=== PATIENT | female | born 1955 | race Caucasian/White ===

== ENCOUNTER 2017-06-01 22:09 | Inpatient (IN) ==
[2017-06-02 00:18] LABS: Basophils # 0.1 K/mcL (0.0-0.2); Basophils % 0.5 %; Eosinophils # 0.6 K/mcL (0.0-0.6); Eosinophils % 6.1 %; Hematocrit 35.2 % (35.3-44.9); Hemoglobin 12.2 g/dL (11.5-15.4); Immature Granulocytes % 0.6 % (0-4); Immature Platelets 6.1 % (1.1-6.1); Lymphocytes # 1.5 K/mcL (0.6-4.6); Lymphocytes % 14.5 %; Mean Corpuscular HGB Conc 34.7 g/dL (31.6-35.5); Mean Corpuscular Hemoglobin 30.7 pg (28.0-33.3); Mean Corpuscular Volume 88.7 fL (83.0-100.0); Mean Platelet Volume 11.1 fL (9.4-12.4); Monocytes # 1.2 K/mcL (0.0-1.3); Monocytes % 12.2 %; Neutrophils # 6.7 K/mcL (1.6-8.9); Platelet Count 221 K/mcL (140-400); Red Blood Count 3.97 M/mcL (3.82-4.97); Red Cell Distribution Width 12.9 % (11.5-14.5); Segmented Neutrophils % 66.1 %
[2017-06-02 00:45] LABS: Albumin 2.7 g/dL (3.5-5.0); Albumin/Globulin Ratio 0.7 (1.1-2.2); Bilirubin,Direct 0.7 mg/dL (0.0-0.5); Bilirubin,Indirect 0.4 mg/dL (0.0-1.2); Bilirubin,Total 1.1 mg/dL (0.2-1.2); Calcium 8.5 mg/dL (8.6-10.8); Globulin 4.1 g/dL (2.4-3.5); Potassium 3.9 mEq/L (3.5-4.5); Total Protein 6.8 g/dL (6.0-8.3)
[2017-06-02] MEDS ORDERED: Ondansetron 4 MG/2 ML VIAL IVP ONE (01:39)
[2017-06-02] MEDS ORDERED: *HR* Morphine 2 MG/ML SYRINGE IVP ONE (01:39)
--- NOTE | 2017-06-02 01:43 | Emergency Department Note ---
Disposition Clinical Impression: Abdominal distention Nausea and vomiting Qualifiers: Vomiting type: unspecified Vomiting Intractability: non-intractable Qualified Code(s): R11.2 - Nausea with vomiting, unspecified Acute kidney failure Qualifiers: Acute renal failure type: unspecified Qualified Code(s): N17.9 - Acute kidney failure, unspecified Disposition: Admitted As Inpatient Condition: Fair Abdominal Pain HPI - General Chief Complaint: ED Abdominal Pain Stated Complaint: states post op complications after umbilical surg Time Seen by Provider: 06/02/17 01:29 Source: patient, family Mode of arrival: ambulatory Limitations: no limitations Nursing Notes Reviewed: Yes Vital Signs Reviewed: Yes - History of Present Illness HPI Narrative: 61-year-old female history of CVA, alcoholic liver disease, as postop 1 week from umbilical hernia repair presents for evaluation of diffuse abdominal bloating. Patient also notes abdominal pain. States that she has had difficult to stooling. Last bowel movement was today and half ago. Also developed some nausea and vomiting over the past 48 hours. Denies any fevers. No chest pain or shortness of breath. No dysuria or hematuria. Patient scheduled follow-up with Dr. Devi, the surgeon in the upcoming weeks. Patient states that she does drink alcohol with approximately 8 beers daily. Abdominal surgery in the past include cholecystectomy, appendectomy, hysterectomy. The patient has not had a colonoscopy. States that she has not been passing gas, but belches. Pain Scale: 9 - Related Data Home Medications Medication Instructions Recorded Confirmed Amlodipine Besylate 10 mg PO DAILY 05/25/17 05/25/17 Aspirin [Lo-Dose Aspirin EC] 81 mg PO DAILY 05/25/17 05/25/17 Atorvastatin [Lipitor] 40 mg PO HS 05/25/17 05/25/17 Furosemide [Lasix] 40 mg PO DAILY 05/25/17 05/25/17 LORazepam [Ativan] 0.5 mg PO BID 05/25/17 05/25/17 Levothyroxine Sodium [Levoxyl] 25 mcg PO DAILY 05/25/17 05/25/17 Lisinopril [Zestril] 10 mg PO DAILY 05/25/17 05/25/17 Potassium Chloride [Klor-Con 10] 10 meq PO DAILY 05/25/17 05/25/17 Previous Rx's Medication Instructions Recorded HYDROcodone/Acet 5/325 mg [[place] 1 tab PO Q6H PRN #12 tab 05/20/17 5-325 mg] OxyCODONE Immed Rel [Roxicodone 5 5 mg PO Q6HR PRN #36 tablet 05/25/17 MG] Allergies Allergy/AdvReac Type Severity Reaction Status Date / Time acetaminophen AdvReac Vomiting Verified 06/01/17 22:42 [From Tylenol-Codeine #3] codeine AdvReac Vomiting Verified 06/01/17 22:42 [From Tylenol-Codeine #3] hydrocodone [From [place]] AdvReac Vomiting Verified 06/01/17 22:42 All systems ED: reviewed and negative except as stated. Constitutional: Reports: as per HPI. Denies: fever Eyes: Reports: as per HPI ENT ED: Reports: as per HPI Cardiovascular: Reports: as per HPI. Denies: chest pain Respiratory: Reports: as per HPI. Denies: dyspnea Gastrointestinal: Reports: as per HPI, abdominal pain, nausea, vomiting, constipation. Denies: diarrhea Genitourinary: Reports: as per HPI Musculoskeletal: Reports: as per HPI Integumentary: Reports: as per HPI Neurological: Reports: as per HPI Psychiatric: Reports: as per HPI Endocrine: Reports: as per HPI Hematological/Lymphatic: Reports: as per HPI Allergic/Immunologic: Reports: as per HPI Abdominal Pain PMH - Past Medical History Medical history: Reports: asthma, CVA, hypertension, other Female Surgical History: Reports: appendectomy, breast surgery, carotid endarterectomy, cholecystectomy, hysterectomy, other Psychiatric history: Reports: anxiety, depression - Social History Smoking status: Former smoker Alcohol use: Reports: heavy Drug use: Reports: none Physical Exam - General Limitations: no limitations General appearance: alert, in no apparent distress - Head Head exam: atraumatic, normocephalic, normal inspection - Eye Eye exam: Present: normal appearance - ENT ENT exam: normal exam, mucous membranes moist - Neck Neck exam: Present: normal inspection, trachea midline - Chest Chest inspection: Present: normal inspection - Respiratory Respiratory exam: Present: normal lung sounds bilaterally. Absent: respiratory distress - Cardiovascular Cardiovascular exam: Present: regular rate, normal rhythm - Abdominal Exam Abdominal exam: Present: soft, tenderness (Mild abdominal tenderness), distention, other (Positive fluid wave). Absent: guarding, rebound - Extremities Exam Extremities exam: Present: normal inspection. Absent: pedal edema - Back Exam Back exam: Present: normal inspection. Absent: CVA tenderness (R), CVA tenderness (L) - Neurological Exam Neurological exam: Present: alert, oriented X3 - Skin Skin exam: Present: warm, dry, intact, normal color Course Course Narrative: Patient seen and examined. Patient's laboratory evaluation ordered from triage. Patient abdominal exam is nonsurgical. Patient does not have spontaneous bacterial peritonitis. Patient has abdominal distention likely rate alcoholic liver disease. Patient will get a CT of the abdomen and pelvis without IV contrast. - Reevaluation(s) Reevaluation #1: Patient seen and examined. Plan of care discussed. Worsening kidney function. Repeat abdominal exam is unremarkable. Time: 02:23 Vital Signs Temperature 98.3 F 06/01/17 22:36 Pulse Rate 85 06/01/17 22:36 Respiratory Rate 16 06/01/17 22:36 Blood Pressure 89/57 06/01/17 22:36 O2 Sat by Pulse Oximetry 98 06/01/17 22:36 Temperature 98.1 F 06/02/17 05:00 Pulse Rate 72 06/02/17 05:00 Respiratory Rate 18 06/02/17 05:00 Blood Pressure 93/57 06/02/17 05:00 O2 Sat by Pulse Oximetry 99 06/02/17 05:00 Oxygen Delivery Oxygen Delivery Room Air Abdominal Pain - MDM Narrative Medical decision making narrative: 61-year-old female presents for evaluation of abdominal distention, abdominal pain as well as constipation. Patient states that she is postop approximately a week from an umbilical hernia repair. Patient does have a history of alcoholic liver disease. Patient missed to drinking approximately 8 alcoholic beverages a day. This was confirmed by the daughter at bedside. Notes decreased bowel movements over the past week. Did note a small bowel movement a day and half ago. Also had some nausea vomiting during this timeframe. Denies any fevers. Denies shortness of breath or chest pain. Does note some abdominal discomfort. Patient's abdominal exam is nonsurgical. Patient does not have spontaneous bacterial peritonitis. Patient's labs reviewed does show that she has worsening kidney function. Patient states she continues to produce urine. Concerns for hepatorenal disease with this patient with chronic liver disease. Patient would likely benefit from further evaluation and monitoring. Patient was given a small fluid bolus in the emergency department she has has been having decreased by mouth. Patient's CAT scan does not show any signs of obstruction. Gait patient's CAT scan also stated that may have been lobulated fluid near the umbilical hernia site. Believe this is likely related to ascites fluid. Patient's incision appears grossly normal. No discharge. No surrounding erythema. Patient would likely benefit from paracentesis under guidance. Patient was given thiamine and folate. - Lab Data Lab results reviewed: Yes I reviewed the patient's lab results. Result diagrams: 06/01/17 23:59 06/02/17 Unknown Lab Results 06/01/17 06/01/17 06/02/17 Range/Units 23:59 23:59 03:10 WBC 10.1 (4.3-11.1) K/mcL RBC 3.97 (3.82-4.97) M/mcL Hgb 12.2 (11.5-15.4) g/dL Hct 35.2 L (35.3-44.9) % MCV 88.7 (83.0-100.0) fL MCH 30.7 (28.0-33.3) pg MCHC 34.7 (31.6-35.5) g/dL RDW 12.9 (11.5-14.5) % Plt Count 221 (140-400) K/mcL MPV 11.1 (9.4-12.4) fL Immature Gran % 0.6 (0-4) % Seg Neutrophils % 66.1 % Lymphocytes % 14.5 % Monocytes % 12.2 % Eosinophils % 6.1 % Basophils % 0.5 % Neutrophils # 6.7 (1.6-8.9) K/mcL Lymphocytes # 1.5 (0.6-4.6) K/mcL Monocytes # 1.2 (0.0-1.3) K/mcL Eosinophils # 0.6 (0.0-0.6) K/mcL Basophils # 0.1 (0.0-0.2) K/mcL Immature Plt Fraction 6.1 (1.1-6.1) % PT 14.2 H (9.4-12.1) Seconds INR 1.3 Sodium 129 L (136-145) mEq/L Potassium 3.9 (3.5-4.5) mEq/L Chloride 98 (98-109) mEq/L Carbon Dioxide 17 L (19-29) mEq/L BUN 41 H (7-20) mg/dL Creatinine 2.93 H (0.57-1.11) mg/dL Est GFR ( Amer) 20 L (> 60) Est GFR (Non-Af Amer) 16 L (> 60) BUN/Creatinine Ratio 14 (6-26) Glucose 115 H (70-99) mg/dL Calculated Osmolality 279 L (280-300) Calcium 8.5 L (8.6-10.8) mg/dL Total Bilirubin 1.1 (0.2-1.2) mg/dL Direct Bilirubin 0.7 H (0.0-0.5) mg/dL Indirect Bilirubin 0.4 (0.0-1.2) mg/dL AST 35 H (5-34) Units/L ALT 20 (0-55) Units/L Alkaline Phosphatase 107 (38-126) Units/L Serum Total Protein 6.8 (6.0-8.3) g/dL Albumin 2.7 L (3.5-5.0) g/dL Globulin 4.1 H (2.4-3.5) g/dL Albumin/Globulin Ratio 0.7 L (1.1-2.2) Lipase 12 (8-78) Units/L - Radiology Data Radiology results reviewed: Yes I reviewed the patient's radiology results. Abdomen/Pelvis CT 06/02/17 01:40 IMPRESSION: There is a moderate volume of ascites in the abdomen and pelvis. This may be related to liver disease in this patient with suspected cirrhosis. Clinical correlation is recommended. Lobulated low-attenuation fluid collection in the region of the umbilicus may represent postoperative fluid collection and/or ascites leaking at the operative site. D/ / El Costello MD / El Costello MD Interpreting Provider: El Costello MD S.B.A.R. - S.B.A.R. Situation: Demographics Background: Presenting Complaint Assessment: Vital Signs, Course and respsone to treatment, Patient/Family Expectation Recommendation: Barrier(s) to disposition, Recommendation based on pending studies, treatments, or consults S.B.A.R. Report Given to: Dr. Yovany Frausto Repor Time: 03:09 Attestation Statement - Attestation Attestation: I, Silvano Yap MD, personally evaluated this patient and discussed their management with the resident physician. I reviewed the resident's note and agree with the documented findings, medical decision making, and plan of care. 61-year-old female presents to the emergency department with a complaint of abdominal pain and chin after she had an umbilical hernia repair 1 week ago. There is a firm masslike area beneath the hernia repair incision which seems to be gradually getting larger. She also complains of some nausea and vomiting. No bowel movement for several days. No fever. On examination patient is a well-developed well-nourished female in no acute distress. She is alert and oriented 3. There is no cyanosis or diaphoresis. Breath sounds are clear and equal bilaterally. Heart regular rate and rhythm. Abdomen is soft with normal bowel sounds. There is mild diffuse tenderness with a palpable firm masslike area distal above the umbilicus beneath the incision. No erythema or drainage. Labs reviewed. Acute kidney injury. CT shows ascites and a fluid collection in the area of the umbilicus. The hospitalist, Dr. Pedroza, was consulted and accepted admission of the patient.
[2017-06-02] MEDS ORDERED: 0.9 % Sodium Chloride 500 ML IVC ONE (01:47)
[2017-06-02] MEDS ORDERED: Folic Acid 1 MG TABLET PO ONE (02:49)
[2017-06-02 03:23] LABS: INR 1.3; Prothrombin Time 14.2 Seconds (9.4-12.1)
--- NOTE | 2017-06-02 03:58 | Internal Med History&Physical ---
<Hayder Sloan - Last Filed: 06/02/17 05:47> Date of Encounter: 06/02/17 Time of Encounter: 03:56 Assessment and Plan (1) Ascites due to alcoholic cirrhosis Current visit: Yes Status: Acute 61-year-old female with history of alcoholic cirrhosis presents with distended abdomen and a significant amount of abdominal ascites. Patient underwent recent abdominal surgery for umbilical hernia. During the procedure she had 6.9 L of ascites fluid removed from her abdomen. This may be contributing to reaccumulation drying from intravascular system. - Patient denies history of paracentesis in the past. - Currently low suspicion for SBP but patient would benefit from diagnostic paracentesis to evaluate ascites fluid. (2) Alcoholic liver disease Current visit: Yes Status: Acute Patient is alcoholic liver disease, continues to drink alcohol daily. Admits to 8 beers per day. INR was 1.3, AST ALT were normal. MELD Score: 26 points with a 19.6% estimated 3-month mortality risk Plan: - Avoid hepatotoxic medications such as acetaminophen. (3) Hepatorenal syndrome Current visit: Yes Status: Acute Patient presents with hepatorenal syndrome likely secondary to third spacing. The patient underwent recent umbilical hernia repair one week ago during which 6.9 L of ascites fluid was removed and since this procedure her creatinine has elevated from 1.05-2.93, her GFR dropped from 53-16. Bicarbonate of 17 and a BUN of 41. Type 1 Hepatorenal syndrome. Patient appears to be intravascularly dry, hypotension with a blood pressure of 89/57 Plan: - Give 500 albumin. - 1 L normal saline bolus with albumin. - Urinalysis (4) Acute kidney failure Current visit: Yes Status: Acute Likely secondary to hepatorenal syndrome and intravascular depletion. Plan: - Improved volume status with IV normal saline and albumin - Hold lisinopril and nephrotoxic medications. - Renally dose antibiotics - Monitor renal function with a.m. labs. Qualifiers: Acute renal failure type: unspecified Qualified Code(s): N17.9 - Acute kidney failure, unspecified (5) Alcohol abuse Current visit: Yes Status: Acute Patient has a history of alcohol abuse and known alcoholic cirrhosis. She continues to drink 8 beers a day and is unsure if she has gone through withdrawals in the past that she does not stop drinking long enough to find out. Plan: - coordinator of health services consult - CIWA protocol with Ativan. - Continue folate, B12 complex vitamin and thiamine. (6) Abdominal pain Current visit: Yes Status: Acute Patient presents with abdominal pain nausea vomiting likely secondary to reduced renal function and increased abdominal fluid. Lower suspicion for SBP but abdominal ascites fluid sample should be collected and sent for analysis. Plan: - Replete volume status - Zofran for nausea Qualifiers: Qualified Code(s): R10.9 - Unspecified abdominal pain (7) Nausea and vomiting Current visit: Yes Status: Acute As described above. Qualifiers: Vomiting type: unspecified Vomiting Intractability: non-intractable Qualified Code(s): R11.2 - Nausea with vomiting, unspecified Internal Medicine - H&P: HPI Chief complaint: Abdominal pain nausea vomiting Admitted From: Emergency Dept Plans for Post Hospital Care: Home History of present illness: Ms. Bhagat is a 61 year old female past medical history of alcoholic cirrhosis , alcohol abuse, coronary artery disease, hypertension and recent umbilical hernia repair presented to the emergency department with abdominal discomfort and fullness and nausea vomiting. Mrs. Sawyer said that all of her current symptoms started 1 week ago after undergoing umbilical hernia repair. She said at that time she had 7 L of ascites fluid drawn off her abdomen. Postoperatively she became nauseous, so the vomiting with eating, and her abdomen continued to swell. She continued to drink alcohol to the last week but had had poor oral intake. She describes abdominal pain as a feeling of stretching and sharp shooting up her bilateral abdomen and around her recent surgical site. She has noticed a fullness at the recent surgical site which became concerning to her. She denies any fevers, chills, sweating, blurry vision, sore throat, chest pain or palpitations or shortness of breath. She admits to drinking 8 beers per day and has never stopped drinking long enough to find out if she will go through withdrawals. She is a previous smoker who smoked a pack a day for 25 years and quit roughly 4 years ago and has used vaporizers occasionally. She denies any history of requiring paracentesis of pull fluid off her abdomen. Past Med Surg Social Fam HX - Past Medical History Medical history: asthma, CVA, hypertension, other Psychiatric history: anxiety, depression - Past Surgical History Surgical History: appendectomy, cholecystectomy - Social History Smoking Status: Former smoker Smokeless Tobacco Status: No Alcohol use: heavy Drug use: none Internal Medicine - H&P: Meds HYDROcodone/Acet 5/325 mg [[place] 5-325 mg] 1 tab PO Q6H PRN #12 tab 05/20/17 [Rx ] Amlodipine Besylate 10 mg PO DAILY 05/25/17 [History] Aspirin [Lo-Dose Aspirin EC] 81 mg PO DAILY 05/25/17 [History] Atorvastatin [Lipitor] 40 mg PO HS 05/25/17 [History] Furosemide [Lasix] 40 mg PO DAILY 05/25/17 [History] LORazepam [Ativan] 0.5 mg PO BID 05/25/17 [History] Levothyroxine Sodium [Levoxyl] 25 mcg PO DAILY 05/25/17 [History] Lisinopril [Zestril] 10 mg PO DAILY 05/25/17 [History] OxyCODONE Immed Rel [Roxicodone 5 MG] 5 mg PO Q6HR PRN #36 tablet 05/25/17 [Rx] Potassium Chloride [Klor-Con 10] 10 meq PO DAILY 05/25/17 [History] Allergies acetaminophen [From Tylenol-Codeine #3] Adverse Reaction (Verified 06/01/17 22: 42) Vomiting codeine [From Tylenol-Codeine #3] Adverse Reaction (Verified 06/01/17 22:42) Vomiting hydrocodone [From [place]] Adverse Reaction (Verified 06/01/17 22:42) Vomiting All Systems PM: A 10-system review of systems was performed and is negative for pertinent findings except as documented above in the HPI. - Constitutional Constitutional: anorexia, fatigue, no chills, no fever(s), no night sweats - EENT Eyes: no change in vision, no discharge, no pain, no photophobia Ears: no ear discharge, no ear pain, no tinnitus Nose, mouth and throat: no dysphagia, no nasal discharge, no neck pain, no sore throat - Cardiovascular Cardiovascular ROS IM: no chest pain, no diaphoresis, no dyspnea, no lightheadedness, no palpitations, no syncope - Respiratory Respiratory: no cough, no dyspnea, no wheezing, no excessive phlegm production - Gastrointestinal Gastrointestinal: abdominal pain, bloating, change in bowel habits, constipation , nausea, vomiting, no diarrhea, no hematemesis, no hematochezia, no melena - Genitourinary Genitourinary: no change in urinary stream, no dysuria, no flank pain, no hematuria - Musculoskeletal Musculoskeletal ROS IM: no numbness, no tingling - Integumentary Integumentary IM: no rash, no unusual bruising - Neurological Neurological ROS: no confusion, no convulsions, no focal weakness, no numbness, no tingling, no tremor(s) - Hematologic/Lymphatic Hematologic/Lymphatic: no easy bruising - Constitutional Vitals: Temp Pulse Resp BP Pulse Ox 98.3 F 85 16 89/57 98 06/01/17 22:36 06/01/17 22:36 06/01/17 22:36 06/01/17 22:36 06/01/17 22:36 Exam: General: Patient alert, awake, oriented 3, interactive, in no acute distress HEENT: Normocephalic, atraumatic, pupils equal reactive to light, no icterus oral mucosa dry, neck supple trachea midline no palpable lymphadenopathy, no thyromegaly. Chest: Symmetric bilateral correlating with respiratory effort, effort nonlabored. Cardiac: Regular rate and rhythm, positive S1 and S2. no bruits appreciated bilateral carotids, Radial pulses 2+ bilateral, posterior tibial and dorsal pedal pulses 2+ bilateral. Respiratory: Clear to auscultation all lung alex Abdomen: Distended abdomen with positive fluid wave, mild tenderness to palpation worse on the left lower quadrant around umbilical surgical site. There is a fullness and warmth to the site of the recent umbilical hernia repair. Extremities: Symmetric bilateral, bilateral lower extremities without erythema or edema patient moving all 4 extremities spontaneously. Neurologic: No focal deficits appreciated on examination. Face symmetric, muscle strength symmetric bilateral upper and lower extremities. Internal Med - H&P Results - Labs CBC & Chem 7: 06/01/17 23:59 06/02/17 Unknown <Bhavin Kwok - Last Filed: 06/02/17 06:27> Date of Encounter: 06/02/17 Internal Medicine - H&P: HPI History of present illness: Ms. Bhagat is a 61 year old female Past Med Surg Social Fam HX - Past Medical History Medical history: CVA (11/2014), thyroid disease - Past Surgical History Surgical History: herniorrhaphy (unbilical) - Additional Family History Additional family history: father is from stomach cancer, mother is also but had no known medical hx, All Systems PM: A 10-system review of systems was performed and is negative for pertinent findings except as documented above in the HPI. - Constitutional Vitals: Temp Pulse Resp BP Pulse Ox 98.1 F 72 18 93/57 99 06/02/17 05:00 06/02/17 05:00 06/02/17 05:00 06/02/17 05:00 06/02/17 05:00 Internal Med - H&P Results - Labs CBC & Chem 7: 06/01/17 23:59 06/02/17 Unknown Labs: BMP 06/02/17 Unknown Sodium 127 L Potassium 3.8 Chloride 97 L Carbon Dioxide 18 L BUN 42 H Creatinine 2.81 H Glucose 117 H Calcium 8.6 Liver Function 06/02/17 Range/Units Unknown Total Bilirubin 1.1 (0.2-1.2) mg/dL AST 36 H (5-34) Units/L ALT 18 (0-55) Units/L Alkaline Phosphatase 116 (38-126) Units/L Albumin 2.7 L (3.5-5.0) g/dL Urine 06/02/17 Range/Units 04:00 Urine Color Yellow (Yellow) Urine Clarity Cloudy A (Clear) Urine pH 6.0 (5.0-8.0) pH Units Ur Specific [place] 1.013 (1.010-1.025) Urine Protein Trace (Neg-Trace) mg/dL Urine Glucose (UA) Normal (Normal) mg/dL - Attending Attestation I personally interviewed and examined this patient and my medical decision- making was reviewed with the Resident Physician. I agree with the documented findings, disposition and treatment plan as described. Patient was admitted as a case of symptomatic ascites but upon further evaluation her main issue is hepatorenal syndrome related to massive removal of ascitic fluid during her recent surgery, we will use a combination of exogenous albumin, midodrine and IVF(norepinephrine, terlipressin has been recommended, availability and use setting is limiting) in managing the situation and follow BMP, should her symptoms from ascites become concerning cautious removal of small amounts of ascitic fluid will be the way forward. Bhavin Kwok MD, MPH Hospitalist
[2017-06-02 04:17] LABS: Bilirubin,Urine Negative (Negative); Blood,Urine Trace (Negative); Clarity,Urine Cloudy (Clear); Color,Urine Yellow (Yellow); Glucose,Urine (UA) Normal (Normal); Ketones,Urine Negative (Negative); Leukocyte Esterase,Urine Small (Negative); Nitrite,Urine Negative (Negative); Protein,Urine Trace mg/dL (Neg-Trace); Specific Gravity,Urine 1.013 (1.010-1.025); Urobilinogen,Urine Normal (Normal)
[2017-06-02 04:20] LABS: Bacteria,Urine None Seen per hpf (None-Few); Hyaline Casts,Urine Few per lpf (None-Few); Squamous Epithelial Cell,Urine Many per lpf (None-Few); WBC,Urine 50-100 per hpf (0-3)
[2017-06-02] MEDS ORDERED: Naloxone 0.4 MG/ML INJ IVP PRN (04:28)
[2017-06-02] MEDS ORDERED: Ondansetron ODT 4 MG TAB.RAPDIS SL PRN (04:28)
[2017-06-02] MEDS ORDERED: *HR* LORazepam 2 MG/ML VIAL IVP PRN ×3 (04:34)
[2017-06-02 05:04] LABS: Alanine Aminotransferase 18 Units/L (0-55); Albumin 2.7 g/dL (3.5-5.0); Albumin/Globulin Ratio 0.6 (1.1-2.2); Alkaline Phosphatase 116 Units/L (38-126); Amylase 49 Units/L (25-125); Aspartate Amino Transferase 36 Units/L (5-34); BUN/Creatinine Ratio 15 (6-26); Bilirubin,Total 1.1 mg/dL (0.2-1.2); Blood Urea Nitrogen 42 mg/dL (7-20); Calcium 8.6 mg/dL (8.6-10.8); Carbon Dioxide 18 mEq/L (19-29); Chloride 97 mEq/L (98-109); Globulin 4.3 g/dL (2.4-3.5); Glucose 117 mg/dL (70-99); Magnesium 1.8 mg/dL (1.6-2.6); Osmolality,Calculated 276 (280-300); Phosphorous 4.5 mg/dL (2.3-4.7); Potassium 3.8 mEq/L (3.5-4.5); Sodium 127 mEq/L (136-145); eGFR For African Americans 21 (> 60); eGFR For Non-African Americans 17 (> 60)
[2017-06-02 05:05] LABS: Ethanol < 10 mg/dL (0-10)
[2017-06-02] MEDS: *HR* Morphine 2 MG/ML SYRINGE IVP PRN ×2 (05:16→09:53)
[2017-06-02] MEDS: Albumin 25% 25gram/100mL 25 GM/100 ML IV.SOLN IVPB SCH ×2 (05:17→09:52)
[2017-06-02] MEDS: 0.9 % Sodium Chloride 1,000 ML IVC SCH ×2 (05:20→17:05)
[2017-06-02] MEDS ORDERED: Levothyroxine 25 MCG TABLET PO SCH (09:00)
[2017-06-02] MEDS ORDERED: Pantoprazole 40 MG VIAL IVP SCH (09:00)
--- NOTE | 2017-06-02 09:19 | Internal Med Progress Note ---
<UlisesJose munoz - Last Filed: 06/02/17 09:33> Date of Encounter: 06/02/17 Time of Encounter: 09:16 - Assessment and plan (1) Hepatorenal syndrome Current Visit: Yes Status: Acute Assessment and plan: - Hepatorenal syndrome likely secondary to chronic alcohol abuse with liver cirrhosis, type 1 - Creatinine upon admission was 2.93, baseline of 1.05 - Evidence on CT scan of moderate abdominal ascites, recent removal of 6.9 L of ascites fluid last week during hernia surgery - Ascites fluid pathology containing reactive mesothelial cells, macrophages, few inflammatory cells - Continue midodrine, IV NS, albumin - May require paracentesis if no further improvement (2) Acute kidney failure Current Visit: Yes Status: Acute Assessment and plan: - Most likely cause is hepatorenal syndrome, other possible etiologies include hypovolemia, toxin exposure, ATN, AIN - BUN/creatinine of 42/2.81, mildly improved from admission of 41/2.93 - Plan as above with midodrine, albumin, IV fluids Qualifiers: Acute renal failure type: unspecified Qualified Code(s): N17.9 - Acute kidney failure, unspecified (3) Ascites due to alcoholic cirrhosis Current Visit: Yes Status: Acute Assessment and plan: - Abdominal CT evidence of moderate ascites status post removal of 6.9 L during umbilical hernia surgery last week - MELD score of 26 - May require paracentesis with fluid analysis if no improvement (4) Nausea and vomiting Current Visit: Yes Status: Acute Assessment and plan: - Likely etiologies include gastritis secondary to chronic alcohol abuse versus abdominal ascites versus alcohol intoxication - No further episodes of vomiting this morning, was able to tolerate some of her breakfast - Continue Prilosec, Zofran when necessary Qualifiers: Vomiting type: unspecified Vomiting Intractability: non-intractable Qualified Code(s): R11.2 - Nausea with vomiting, unspecified (5) Alcohol abuse Current Visit: Yes Status: Acute Assessment and plan: - Patient admits to drinking approximately 8 beers per day - History of hepatic cirrhosis secondary to chronic alcohol abuse -Denies any history of delirium tremors, withdrawal symptoms - CIWA protocol in place with Ativan on board. - Folic acid, thiamine, vitamin B being replenished - Social work consulted (6) Abdominal pain Current Visit: Yes Status: Acute Assessment and plan: - Likely etiologies include gastritis versus abdominal ascites - Plan as above - Time Spent With Patient 25 - 35 minutes - Subjective Interval history: This note is not for billing purposes. She was seen and examined at bedside this morning. She states that her abdominal pain, fullness, nausea and not changed since admission early this morning. She did attempt to eat some breakfast, however she states that it did not sit well with her and she was not able to eat very much. She was able to tolerate her juice this morning. She denies any symptoms of numbness, tingling, confusion and tremors she reports her last alcoholic drink was at 2100 last evening which contains a small light beer. Denies any history of DTs or withdrawals. She does state that during her surgery, 7 L of ascites fluid was taken and sent for pathology. She is unsure of the results. She denies any fevers, chills, cough, new onset shortness of breath, chest pain, lower extremity edema, hematemesis, melena. She has also complaining of back pain - Constitutional Vitals: Temp Pulse Resp BP Pulse Ox 98.1 F 72 18 93/57 99 06/02/17 05:00 06/02/17 05:00 06/02/17 05:00 06/02/17 05:00 06/02/17 05:00 Exam: Gen.: Vitals noted. No acute distress. AAOx3 HEENT: PERRL/EOMI, oropharynx clear, Normocephalic, atraumatic, moist mucous membranes Neck: Supple. No adenopathy. Cardiac: RRR, no murmur, +S1/S2 Pulmonary: CTA bilaterally, no wheezes, rales or rhonchi, equal chest expansion Abdomen: Tender to palpation in the epigastric, lower right quadrant, dullness to percussion in the lower quadrants, bowel sounds positive, well healing surgical incision near the umbilicus without drainage, erythema, edema. Fluid wave positive. No rebound Back: Nontender throughout. MSK: ROM intact, no joint swelling noted Extremities: no BLE edema, nontender calf, no cyanosis or clubbing Neuro: A&Ox3, moves all extremities, no focal deficits Psych: Appropriate mood and behavior Internal Medicine: Result - Labs CBC & Chem 7: 06/01/17 23:59 06/02/17 Unknown Labs: BMP 06/02/17 Unknown Sodium 127 L Potassium 3.8 Chloride 97 L Carbon Dioxide 18 L BUN 42 H Creatinine 2.81 H Glucose 117 H Calcium 8.6 Liver Function 06/02/17 Range/Units Unknown Total Bilirubin 1.1 (0.2-1.2) mg/dL AST 36 H (5-34) Units/L ALT 18 (0-55) Units/L Alkaline Phosphatase 116 (38-126) Units/L Albumin 2.7 L (3.5-5.0) g/dL Urine 06/02/17 Range/Units 04:00 Urine Color Yellow (Yellow) Urine Clarity Cloudy A (Clear) Urine pH 6.0 (5.0-8.0) pH Units Ur Specific [place] 1.013 (1.010-1.025) Urine Protein Trace (Neg-Trace) mg/dL Urine Glucose (UA) Normal (Normal) mg/dL - ABG Interpretation ABG results: PT/INR, D-dimer PT 14.2 Seconds (9.4-12.1) H 06/02/17 03:10 Consult Discharge Plan - Plan Referrals: NO,PCP [Primary Care Provider] - <Gabriel Carrillo H - Last Filed: 06/02/17 14:44> Date of Encounter: 06/02/17 - Constitutional Vitals: Temp Pulse Resp BP Pulse Ox 97.8 F 70 16 95/58 97 06/02/17 11:03 06/02/17 11:03 06/02/17 11:03 06/02/17 11:03 06/02/17 11:03 Internal Medicine: Result - Labs CBC & Chem 7: 06/01/17 23:59 06/02/17 Unknown Labs: [facility] 06/02/17 Unknown Sodium 127 L Potassium 3.8 Chloride 97 L Carbon Dioxide 18 L BUN 42 H Creatinine 2.81 H Glucose 117 H Calcium 8.6 Liver Function 06/02/17 Range/Units Unknown Total Bilirubin 1.1 (0.2-1.2) mg/dL AST 36 H (5-34) Units/L ALT 18 (0-55) Units/L Alkaline Phosphatase 116 (38-126) Units/L Albumin 2.7 L (3.5-5.0) g/dL Urine 06/02/17 Range/Units 04:00 Urine Color Yellow (Yellow) Urine Clarity Cloudy A (Clear) Urine pH 6.0 (5.0-8.0) pH Units Ur Specific [place] 1.013 (1.010-1.025) Urine Protein Trace (Neg-Trace) mg/dL Urine Glucose (UA) Normal (Normal) mg/dL - ABG Interpretation ABG results: PT/INR, D-dimer PT 14.2 Seconds (9.4-12.1) H 06/02/17 03:10 - Attending Attestation ARF, consider possible hepatorrenal syndrome received albumin, and midodrine nephrology recommendations appreciated Alcohol abuse start librium and taper ativan prn I examined this patient and my medical decision-making was reviewed with the Resident Physician. I agree with the documented findings, disposition and treatment plan as described except to the extent set forth below.
[2017-06-02] MEDS: Folic Acid 1 MG TABLET PO SCH (09:51)
[2017-06-02] MEDS: Vitamin B Complex/Vit C/Vit E 1 EACH TABLET PO SCH (09:51)
[2017-06-02] MEDS: Levothyroxine 25 MCG TABLET PO SCH (09:51)
[2017-06-02] MEDS: Thiamine (B-1) 100 MG TABLET PO SCH (09:51)
[2017-06-02] MEDS: Aspirin Enteric Coated 81 MG Tablet PO SCH (09:51)
[2017-06-02] MEDS ORDERED: Lactulose Oral Soln 20 GM/30 ML UDC PO SCH (10:45)
--- NOTE | 2017-06-02 11:35 | Nephrology Consult Note ---
Date of Encounter: 06/02/17 Time of Encounter: 11:28 Assessment and Plan (1) Acute kidney failure Current Visit: Yes Status: Acute 61 F hx of alcoholic cirrhosis, ascites, HTN, alcoholism s/p umbilical hernia repair with removal of 7 L asitic fluid GFR 53 last week to 16. Started on albumin and IVF with minor improvement in renal function MELD Score: 26 points with a 19.6% estimated 3-month mortality risk Patient had significant amount of asitic fluid removed which likely decreased her intravascular volume and lead to worsening renal perfusion. Albumin 2.7 physical exam: no signs of fluid overload repeat CT shows reaccumulation of ascitic fluid Plan: Likely hepatorenal syndrome due to third spacing, intravascularly dry. Bp 95/58 Continue albumin do not continue home lasix, lisinopril, amlodipine, ibuprophen. postpone paracentesis which may decrease intravascular volume and worsen renal function. echocardiogram: hx of LE edema which has not been worked up. Discontinue ibuprophen at discharge. Control N/V. Qualifiers: Acute renal failure type: unspecified Qualified Code(s): N17.9 - Acute kidney failure, unspecified (2) Ascites due to alcoholic cirrhosis Current Visit: Yes Status: Acute (3) Hepatorenal syndrome Current Visit: Yes Status: Acute (4) Alcohol abuse Current Visit: Yes Status: Acute History of Present Illness - Reason for Consult Consult date: 06/02/17 Acute Kidney Injury - Chief Complaint diffuse abdominal bloating - History of Present Illness 61 y/o female hx of alcoholic liver disease, HTN status post 1 week umbilical hernia repair with removal of 7 L of abdominal fluid presented to ER due to abdominal bloating, nausea and vomiting. Postoperatively patient had nausea, vomiting. She also continued to drink alcohol about 8 beers per day. Abdominal pain is located at surgical site, sharp and diffuse. Denies fever, chills, chest pain, sob. Reports dysuria, constipation, decreased urine frequency/ production. She has never had paracentesis/ pulling of abdominal fluid before her surgery. Denies previous history of kidney disease. Reports taking ibuprophen for chronic back pain. On Lasix for lower extremity edema. No history of CHF. Reports poor oral intake since surgery. Past Med Surg Social Fam HX - Past Medical History Medical history: CVA (11/2014), thyroid disease Psychiatric history: anxiety, depression - Past Surgical History Surgical History: herniorrhaphy (unbilical) - Social History Smoking Status: Former smoker Smokeless Tobacco Status: No Alcohol use: heavy Drug use: none Medications and Allergies Amlodipine Besylate 10 mg PO DAILY 05/25/17 [History] Aspirin [Lo-Dose Aspirin EC] 81 mg PO DAILY 05/25/17 [History] Atorvastatin [Lipitor] 40 mg PO HS 05/25/17 [History] Furosemide [Lasix] 40 mg PO DAILY 05/25/17 [History] LORazepam [Ativan] 0.5 mg PO BID PRN 05/25/17 [History] Levothyroxine Sodium [Levoxyl] 25 mcg PO DAILY 05/25/17 [History] Lisinopril [Zestril] 10 mg PO DAILY 05/25/17 [History] OxyCODONE Immed Rel [Roxicodone 5 MG] 5 mg PO Q6HR PRN #36 tablet 05/25/17 [Rx] Citalopram Hydrobromide [Celexa] 40 mg PO DAILY 06/02/17 [History] Allergies acetaminophen [From Tylenol-Codeine #3] Adverse Reaction (Verified 06/01/17 22: 42) Vomiting codeine [From Tylenol-Codeine #3] Adverse Reaction (Verified 06/01/17 22:42) Vomiting hydrocodone [From [place]] Adverse Reaction (Verified 06/01/17 22:42) Vomiting Review of Systems All Systems review (narrative): Constitutional: Denies fever, chills. Reports fatigue HEENT: Denies headache, vision changes, sore throat, rhinorrhea Heart: Denies chest pain palpitations Lungs: Denies shortness of breath cough Abdomen: Reports abdominal pain, nausea, vomiting, constipation Back: Reports back pain Kidney: Reports decreased urine production/dysuria Extremities: Denies swelling, pain Neuro: Denies numbness, and tingling Exam - Vital Signs Vital signs: Initial Vital Signs Temp Pulse Resp BP Pulse Ox 98.3 F 85 16 89/57 98 06/01/17 22:36 06/01/17 22:36 06/01/17 22:36 06/01/17 22:36 06/01/17 22:36 Vital Signs - Last 8 Hours Temp Pulse Resp BP Pulse Ox 06/02/17 11:03 97.8 F 70 16 95/58 97 06/02/17 09:55 97 06/02/17 05:00 98.1 F 72 18 93/57 99 06/02/17 04:29 16 92/48 Intake and Output 06/01/17 06/02/17 06/02/17 23:59 07:59 15:59 Intake Total 220 / 220 120 / 120 Output Total 0 / 0 Balance 220 / 220 120 / 120 Intake: IV Fluids 100 / 100 Flexbumin 25 gm In 100 ml 100 / 100 @ 60 mls/hr IVPB Q6H DEVEN Rx#:[id number] Oral 120 / 120 120 / 120 Output: Urine 0 / 0 Other: Meal Breakfast Percent of Meal Consumed 5% Weight 68.311 kg Blood Glucose* 106 116 Patient Weight 06/02/17 23:59 Weight 68.311 kg - General Appearance General appearance: frail EENT: PERRL, mucous membranes moist Neck: no JVD, no thyromegaly, supple Additional Comments: Right neck scar from carotid endarterectomy Respiratory: clear Cardiology: no edema, regular rate, regular rhythm, normal S1, normal S2 Gastrointestinal: normoactive bowel sounds, tenderness (Over surgical scar which is intact without drainage), distended Additional Comments: absent fluid wave. Integumentary: no rash, warm and dry Neurologic: no focal deficit, no asterixis, alert and oriented x3 Musculoskeletal: no deformities, no erythema, no cyanosis, no clubbing Psychiatric: depressed Results - Lab Results 06/01/17 23:59 06/02/17 Unknown Most recent lab results Calcium 8.6 mg/dL (8.6-10.8) 06/02/17 Unknown Phosphorus 4.5 mg/dL (2.3-4.7) 06/02/17 Unknown Magnesium 1.8 mg/dL (1.6-2.6) 06/02/17 Unknown Consult Discharge Plan - Plan Referrals: NO,PCP [Primary Care Provider] -
[2017-06-02] MEDS: Lactulose Oral Soln 20 GM/30 ML UDC PO SCH ×2 (11:51→21:42)
[2017-06-02] MEDS: *HR* LORazepam 2 MG/ML VIAL IVP PRN (12:24)
[2017-06-03] MEDS: 0.9 % Sodium Chloride 1,000 ML IVC SCH ×2 (01:21→13:26)
[2017-06-03 05:28] LABS: Basophils % 0.3 %; Eosinophils # 0.4 K/mcL (0.0-0.6); Eosinophils % 5.7 %; Hematocrit 36.4 % (35.3-44.9); Hemoglobin 11.9 g/dL (11.5-15.4); Immature Granulocytes % 0.3 % (0-4); Lymphocytes # 1.4 K/mcL (0.6-4.6); Lymphocytes % 18.6 %; Mean Corpuscular HGB Conc 32.7 g/dL (31.6-35.5); Mean Corpuscular Hemoglobin 29.9 pg (28.0-33.3); Mean Corpuscular Volume 91.5 fL (83.0-100.0); Mean Platelet Volume 10.9 fL (9.4-12.4); Monocytes # 0.9 K/mcL (0.0-1.3); Neutrophils # 4.9 K/mcL (1.6-8.9); Platelet Count 174 K/mcL (140-400); Red Blood Count 3.98 M/mcL (3.82-4.97); Red Cell Distribution Width 13.1 % (11.5-14.5); Segmented Neutrophils % 63.1 %
[2017-06-03 05:43] LABS: Albumin/Globulin Ratio 0.9 (1.1-2.2); Bilirubin,Total 1.5 mg/dL (0.2-1.2); Calcium 8.6 mg/dL (8.6-10.8); Globulin 3.3 g/dL (2.4-3.5); Magnesium 1.6 mg/dL (1.6-2.6); Potassium 3.7 mEq/L (3.5-4.5); Total Protein 6.3 g/dL (6.0-8.3)
[2017-06-03] MEDS: Levothyroxine 25 MCG TABLET PO SCH (05:51)
[2017-06-03] MEDS: Aspirin Enteric Coated 81 MG Tablet PO SCH (08:16)
[2017-06-03] MEDS: Vitamin B Complex/Vit C/Vit E 1 EACH TABLET PO SCH (08:16)
[2017-06-03] MEDS: Folic Acid 1 MG TABLET PO SCH (08:16)
[2017-06-03] MEDS: Thiamine (B-1) 100 MG TABLET PO SCH (08:17)
[2017-06-03] MEDS: Lactulose Oral Soln 20 GM/30 ML UDC PO SCH ×3 (08:17→21:23)
[2017-06-03] MEDS: *HR* OxyCODONE Immed Rel 5 MG TABLET PO PRN (08:27)
--- NOTE | 2017-06-03 10:13 | Nephrology Progress Note ---
<Angel Christian - Last Filed: 06/03/17 13:44> Date of Encounter: 06/03/17 Time of Encounter: 10:08 - Assessment and Plan (1) Acute kidney failure Current Visit: Yes Status: Acute Renal function has improved dramatically eGFR 17>>31 likely from infusions of albumin and IVF MELD Score: 26 points with a 19.6% estimated 3-month mortality risk Will undergo paracentesis today albumin 3.0 today Plan: Likely hepatorenal syndrome due to third spacing, intravascularly dry. Bp in systolic 90s do not continue home lasix, lisinopril, amlodipine, ibuprophen. undergo paracentesis todsay echocardiogram shows LVEF of 60-65% with mild diastoic dysfunction, otherwise no wall segment abnormalaties or valvular abnormalaties. Discontinue ibuprophen at discharge. Control N/V. Qualifiers: Acute renal failure type: unspecified Qualified Code(s): N17.9 - Acute kidney failure, unspecified (2) Ascites due to alcoholic cirrhosis Current Visit: Yes Status: Acute (3) Hepatorenal syndrome Current Visit: Yes Status: Acute (4) Alcohol abuse Current Visit: Yes Status: Acute Subjective Principal diagnosis: hepatorenal syndrome Interval history: more confused this morning. States she feels "crappy." Denies N/V. ON laculose had had 3 bowel movements. Ammonia level 89. Objective - Vital Signs Vital signs: Vital Signs Temp Pulse Resp BP Pulse Ox 06/03/17 08:35 98 06/03/17 07:41 98.4 F 72 16 96/61 98 06/03/17 04:23 98.3 F 68 16 90/50 95 06/02/17 23:42 98.6 F 70 16 108/69 95 06/02/17 18:58 98.1 F 70 16 101/64 95 06/02/17 11:03 97.8 F 70 16 95/58 97 Intake and Output 06/02/17 06/03/17 06/03/17 23:59 07:59 15:59 Intake Total 50 / 50 1000 / 1000 240 / 240 Output Total 600 / 600 0 / 0 Balance -550 / -550 1000 / 1000 240 / 240 Intake: IV Fluids 1000 / 1000 0.9 % Sodium Chloride 1, 1000 / 1000 000 ML @ 125 mls/hr IVC . Q8H DEVEN Rx#:[id number] Oral 50 / 50 240 / 240 Output: Urine 600 / 600 0 / 0 Other: Meal Dinner Breakfast Percent of Meal Consumed 25% 40% Stool Size Moderate Small Stool Consistency soft Stool Color Brown # Voids 1 # Bowel Movements 1 # Bowel Movement Diapers 1 1 Weight 70.1 kg Blood Glucose* 114 93 Patient Weight 06/03/17 23:59 Weight 70.1 kg - General Appearance General appearance: Present: chronically ill EENT: Present: mucous membranes moist Neck: Present: no JVD, supple Respiratory: Present: clear Cardiology: Present: no murmurs, no rub, no gallops, no edema, regular rate, regular rhythm, normal S1, normal S2 Gastrointestinal: Present: normoactive bowel sounds, no tenderness Integumentary: Present: no rash, warm and dry Neurologic: Present: no focal deficit, no asterixis, alert and oriented x3 Musculoskeletal: Present: no deformities, no erythema, no cyanosis, no clubbing Psychiatric: Present: mood/affect appropriate, cooperative - Lab 06/03/17 04:32 06/03/17 04:32 Most recent lab results Calcium 8.6 mg/dL (8.6-10.8) 06/03/17 04:32 Phosphorus 4.5 mg/dL (2.3-4.7) 06/02/17 Unknown Magnesium 1.6 mg/dL (1.6-2.6) 06/03/17 04:32 Consult Discharge Plan - Plan Referrals: NO,PCP [Primary Care Provider] - <Jann Jeff - Last Filed: 06/04/17 12:54> Date of Encounter: 06/03/17 Objective - Vital Signs Vital signs: Vital Signs Temp Pulse Resp BP Pulse Ox 06/04/17 11:19 97.4 F L 67 16 99/65 99 06/04/17 08:32 99 06/04/17 07:31 97.4 F L 67 16 99/64 99 06/04/17 04:36 97.6 F 84 16 104/68 92 06/04/17 00:02 97.6 F 60 16 102/66 98 06/03/17 16:07 97.8 F 65 16 98/64 96 Intake and Output 06/03/17 06/04/17 06/04/17 23:59 07:59 15:59 Intake Total 350 / 350 1870 / 1870 1060 / 1060 Output Total 0 / 0 0 / 0 Balance 350 / 350 1870 / 1870 1060 / 1060 Intake: IV Fluids 100 / 100 1650 / 1650 1000 / 1000 0.9 % Sodium Chloride 1, 1650 / 1650 1000 / 1000 000 ML @ 125 mls/hr IVC . Q8H DEVEN Rx#:[id number] Flexbumin 25 gm In 100 ml 100 / 100 @ 60 mls/hr IVPB ONCE ONE Rx#:[id number] Oral 250 / 250 220 / 220 60 / 60 Output: Urine 0 / 0 0 / 0 Other: Meal Breakfast Percent of Meal Consumed 0% Stool Size Small Small Small Stool Consistency liquid liquid loose Stool Characteristics Normal for Patient Stool Color Brown Yellow Yellow Yellow [place] Colored # Voids 1 1 # Bowel Movements 2 1 1 Weight 63.594 kg Blood Glucose* 108 99 102 Patient Weight 06/04/17 23:59 Weight 63.594 kg - Lab 06/04/17 06:28 06/04/17 06:28 Most recent lab results Calcium 8.5 mg/dL (8.6-10.8) L 06/04/17 06:28 Phosphorus 4.5 mg/dL (2.3-4.7) 06/02/17 Unknown Magnesium 1.6 mg/dL (1.6-2.6) 06/03/17 04:32 - Attending Attestation I examined this patient and my medical decision-making was reviewed with the Resident Physician. I agree with the documented findings, disposition and treatment plan as described except to the extent set forth below. Pt seen and examined s/p paracentesis with 5.5liters removed. She still still lethargic as a result of procedure and meds given. family present at bedside. interim events noted. SCr improving after albumin boluses. Will recommend additional albumin to be given after paracentesis done today. On exam, abdomen significantly soft, nondistended. Goal of care discussed with family. Avoid nephrotoxins is possible.
[2017-06-03] MEDS: *HR* LORazepam 2 MG/ML VIAL IVP PRN ×2 (10:40→17:09)
[2017-06-03] MEDS ORDERED: Lactulose Oral Soln 20 GM/30 ML UDC PO ONE (13:58)
--- NOTE | 2017-06-03 14:04 | IR Procedure Note ---
Date of procedure: 06/03/17 Consent Obtained: Verbal consent Local anesthetic: Lidocaine 1% Indications: ascites Procedure Performed: paracentesis Site/Technique: rt abdomen, 8F sheath Results/Findings: large ascites Estimated blood loss (cc): 0 Complications: None; Tolerated procedure well Post Procedure Treatment Plan: monitor
--- NOTE | 2017-06-03 14:48 | Internal Med Progress Note ---
<Jose Ibrahim - Last Filed: 06/03/17 14:44> Date of Encounter: 06/03/17 Time of Encounter: 14:45 - Assessment and plan (1) Hepatorenal syndrome Current Visit: Yes Status: Acute Assessment and plan: - Hepatorenal syndrome likely secondary to chronic alcohol abuse with liver cirrhosis, type 1 - Creatinine improved to 1.68, from 2.81 with fluids, midodrine, and albumin. - Diagnostic paracentesis performed this afternoon with 5.5 L taken off. results pending. - Echo showed EF 60-65%, mild diastolic dysfunction. - Continue midodrine, IV NS. received 2 bags of 25 g albumin yesterday. (2) Acute kidney failure Current Visit: Yes Status: Acute Assessment and plan: - Most likely cause is hepatorenal syndrome, other possible etiologies include hypovolemia, toxin exposure, ATN, AIN - BUN/creatinine improved, 27/1.68.yesterday 42/2.81 - Plan as above with midodrine, albumin, IV fluids - Monitor Hypotension. Currently 90-100s systolic. - Nephrology following, appreciate recommendations Qualifiers: Acute renal failure type: unspecified Qualified Code(s): N17.9 - Acute kidney failure, unspecified (3) Ascites due to alcoholic cirrhosis Current Visit: Yes Status: Acute Assessment and plan: - Paracentesis today. Pending results of fluid analysis. 5.5 L removed. - Continue lactulose 20 mg BID. 2 BMs. Given an additional 30 mg dose this afternoon. - Ammonia level 89 today - MELD score of 26 (4) Nausea and vomiting Current Visit: Yes Status: Acute Assessment and plan: - Likely etiologies include gastritis secondary to chronic alcohol abuse versus abdominal ascites versus alcohol intoxication - No further episodes of n/v since admission. - Continue Prilosec, Zofran when necessary Qualifiers: Vomiting type: unspecified Vomiting Intractability: non-intractable Qualified Code(s): R11.2 - Nausea with vomiting, unspecified (5) Alcohol abuse Current Visit: Yes Status: Acute Assessment and plan: - Patient admits to drinking approximately 8 beers per day, family reports approximately 1 case/ day. - History of hepatic cirrhosis secondary to chronic alcohol abuse -Denies any history of delirium tremors, withdrawal symptoms - CIWA protocol in place with Ativan on board. Librium 50 mg QID scheduled. - Folic acid, thiamine, vitamin B being replenished - Social work consulted (6) Abdominal pain Current Visit: Yes Status: Acute Assessment and plan: - Likely etiologies include alcoholic gastritis versus abdominal ascites - Plan as above Qualifiers: Abdominal location: generalized Qualified Code(s): R10.84 - Generalized abdominal pain - Time Spent With Patient less than 15 minutes - Subjective Interval history: This note is not for billing purposes. She was seen and examined at bedside this morning. Patient was very lethargic upon interview and had just received Ativan. She was not complaining of pain at this time. She reported having 2 BMs since last evening on lactulose. Per nursing she was able to tolerate 40% of her breakfast. - Constitutional Vitals: Temp Pulse Resp BP Pulse Ox 98.2 F 63 16 96/60 97 06/03/17 13:30 06/03/17 13:30 06/03/17 13:30 06/03/17 13:30 06/03/17 13:30 Exam: Gen.: Vitals noted. No acute distress. AAOx3 HEENT: PERRL/EOMI, oropharynx clear, Normocephalic, atraumatic Neck: Supple. No adenopathy. Cardiac: RRR, no murmur, +S1/S2 Pulmonary: CTA bilaterally, no wheezes, rales or rhonchi, equal chest expansion Abdomen: tender to palpation in epigastric and LRQ. Dull to percussion in lower abdomen. Surgical incision well healing. BS noted, no guarding Back: Nontender throughout. MSK: ROM intact, no joint swelling noted Extremities: no BLE edema, nontender calf, no cyanosis or clubbing Neuro: A&Ox3, moves all extremities, no focal deficits Psych: Appropriate mood and behavior Internal Medicine: Result - Labs CBC & Chem 7: 06/03/17 04:32 06/03/17 04:32 Labs: Short CBC 06/03/17 Range/Units 04:32 WBC 7.8 (4.3-11.1) K/mcL Hgb 11.9 (11.5-15.4) g/dL Hct 36.4 (35.3-44.9) % Plt Count 174 (140-400) K/mcL Neutrophils # 4.9 (1.6-8.9) K/mcL BMP 06/03/17 04:32 Sodium 135 L D Potassium 3.7 Chloride 107 Carbon Dioxide 19 BUN 27 H D Creatinine 1.68 H Glucose 95 Calcium 8.6 Liver Function 06/03/17 Range/Units 04:32 Total Bilirubin 1.5 H (0.2-1.2) mg/dL AST 31 (5-34) Units/L ALT 14 (0-55) Units/L Alkaline Phosphatase 100 (38-126) Units/L Albumin 3.0 L (3.5-5.0) g/dL - ABG Interpretation ABG results: PT/INR, D-dimer PT 14.2 Seconds (9.4-12.1) H 06/02/17 03:10 - Impressions Impressions Paracentesis Ultrasound 06/03/17 00:00 IMPRESSION: Successful ultrasound guided paracentesis. D/ / 06/03/2017 14:13:28 Rachelle Quispe MD / ren Interpreting Provider: Rachelle Quispe MD Consult Discharge Plan - Plan Referrals: NO,PCP [Primary Care Provider] - <Gabriel Carrillo H - Last Filed: 06/03/17 15:00> Date of Encounter: 06/03/17 - Constitutional Vitals: Temp Pulse Resp BP Pulse Ox 98.2 F 63 16 96/60 97 06/03/17 13:30 06/03/17 13:30 06/03/17 13:30 06/03/17 13:30 06/03/17 13:30 Internal Medicine: Result - Labs CBC & Chem 7: 06/03/17 04:32 06/03/17 04:32 Labs: Short CBC 06/03/17 Range/Units 04:32 WBC 7.8 (4.3-11.1) K/mcL Hgb 11.9 (11.5-15.4) g/dL Hct 36.4 (35.3-44.9) % Plt Count 174 (140-400) K/mcL Neutrophils # 4.9 (1.6-8.9) K/mcL [facility] [place] 06/03/17 04:32 Sodium 135 L D Potassium 3.7 Chloride 107 Carbon Dioxide 19 BUN 27 H D Creatinine 1.68 H Glucose 95 Calcium 8.6 Liver Function 06/03/17 Range/Units 04:32 Total Bilirubin 1.5 H (0.2-1.2) mg/dL AST 31 (5-34) Units/L ALT 14 (0-55) Units/L Alkaline Phosphatase 100 (38-126) Units/L Albumin 3.0 L (3.5-5.0) g/dL - ABG Interpretation ABG results: PT/INR, D-dimer PT 14.2 Seconds (9.4-12.1) H 06/02/17 03:10 - Impressions Impressions Paracentesis Ultrasound 06/03/17 00:00 IMPRESSION: Successful ultrasound guided paracentesis. D/ : / 06/03/2017 14:13:28 Rachelle Quispe MD / ren Interpreting Provider: Rachelle Quispe MD - Attending Attestation hepatic encephalopathy continue lactulose I examined this patient and my medical decision-making was reviewed with the Resident Physician. I agree with the documented findings, disposition and treatment plan as described except to the extent set forth below.
[2017-06-03] MEDS ORDERED: Albumin 25% 25gram/100mL 25 GM/100 ML IV.SOLN IVPB ONE (15:54)
[2017-06-03 16:32] LABS: RBC,Peritoneal Fluid 0.009 M/mcL
[2017-06-03 16:43] LABS: Amylase,Peritoneal Fluid 15 Units/L (No Ref Range); Glucose,Peritoneal Fluid 100 mg/dL (No Ref Range); LDH,Peritoneal Fluid 100 Units/L (No Ref Range)
[2017-06-03 16:44] LABS: Total Protein,Peritoneal Fluid 2.8 g/dL (No Ref Range)
[2017-06-03 17:32] LABS: Appearance of Peritoneal Fl HAZY (Clear)
[2017-06-04] MEDS: 0.9 % Sodium Chloride 1,000 ML IVC SCH ×5 (00:32→16:28)
[2017-06-04] MEDS: Levothyroxine 25 MCG TABLET PO SCH (05:50)
[2017-06-04 06:55] LABS: Hematocrit 37.4 % (35.3-44.9); Hemoglobin 12.3 g/dL (11.5-15.4); Mean Corpuscular HGB Conc 32.9 g/dL (31.6-35.5); Mean Corpuscular Hemoglobin 30.1 pg (28.0-33.3); Mean Corpuscular Volume 91.4 fL (83.0-100.0); Platelet Count 178 K/mcL (140-400); Red Blood Count 4.09 M/mcL (3.82-4.97); Red Cell Distribution Width 13.2 % (11.5-14.5)
[2017-06-04 07:04] LABS: BUN/Creatinine Ratio 15 (6-26); Calcium 8.5 mg/dL (8.6-10.8); Carbon Dioxide 21 mEq/L (19-29); Chloride 113 mEq/L (98-109); Glucose 101 mg/dL (70-99); Osmolality,Calculated 291 (280-300); Potassium 3.6 mEq/L (3.5-4.5); Sodium 140 mEq/L (136-145); eGFR For African Americans > 60 (> 60); eGFR For Non-African Americans 51 (> 60)
[2017-06-04 07:13] LABS: Blood Urea Nitrogen 16 mg/dL (7-20)
[2017-06-04] MEDS: Lactulose Oral Soln 20 GM/30 ML UDC PO SCH ×2 (08:24→20:14)
[2017-06-04] MEDS: Folic Acid 1 MG TABLET PO SCH (08:24)
[2017-06-04] MEDS: Vitamin B Complex/Vit C/Vit E 1 EACH TABLET PO SCH (08:24)
[2017-06-04] MEDS: Aspirin Enteric Coated 81 MG Tablet PO SCH (08:24)
[2017-06-04] MEDS: Thiamine (B-1) 100 MG TABLET PO SCH (08:24)
--- NOTE | 2017-06-04 12:51 | Nephrology Progress Note ---
Date of Encounter: 06/04/17 Time of Encounter: 12:40 - Assessment and Plan (1) Acute kidney failure Current Visit: Yes Status: Acute Scr almost normalized at 1.09, GFR 51 after albumin boluses despite paracentesis which is great UOP not documented! Continue to avoid nephrotoxins if possible Qualifiers: Acute renal failure type: unspecified Qualified Code(s): N17.9 - Acute kidney failure, unspecified (2) Ascites due to alcoholic cirrhosis Current Visit: Yes Status: Acute s/p paracenteis with 5.5liters removed Followup ammonia levels per primary team continue midodrine (3) Hyponatremia Current Visit: Yes Status: Acute normalized with sodium now at 140, will monitor Subjective Principal diagnosis: hepatorenal syndrome Interval history: Pt seen and examined still lethargic today Objective - Vital Signs Vital signs: Vital Signs Temp Pulse Resp BP Pulse Ox 06/04/17 11:19 97.4 F L 67 16 99/65 99 06/04/17 08:32 99 06/04/17 07:31 97.4 F L 67 16 99/64 99 06/04/17 04:36 97.6 F 84 16 104/68 92 06/04/17 00:02 97.6 F 60 16 102/66 98 06/03/17 16:07 97.8 F 65 16 98/64 96 Intake and Output 06/03/17 06/04/17 06/04/17 23:59 07:59 15:59 Intake Total 350 / 350 1870 / 1870 1060 / 1060 Output Total 0 / 0 0 / 0 Balance 350 / 350 1870 / 1870 1060 / 1060 Intake: IV Fluids 100 / 100 1650 / 1650 1000 / 1000 0.9 % Sodium Chloride 1, 1650 / 1650 1000 / 1000 000 ML @ 125 mls/hr IVC . Q8H DEVEN Rx#:[id number] Flexbumin 25 gm In 100 ml 100 / 100 @ 60 mls/hr IVPB ONCE ONE Rx#:[id number] Oral 250 / 250 220 / 220 60 / 60 Output: Urine 0 / 0 0 / 0 Other: Meal Breakfast Percent of Meal Consumed 0% Stool Size Small Small Small Stool Consistency liquid liquid loose Stool Characteristics Normal for Patient Stool Color Brown Yellow Yellow Yellow Joaquin Colored # Voids 1 1 # Bowel Movements 2 1 1 Weight 63.594 kg Blood Glucose* 108 99 102 Patient Weight 06/04/17 23:59 Weight 63.594 kg - General Appearance General appearance: Present: chronically ill (NAD) EENT: Present: ATNC, mucous membranes moist Neck: Present: no JVD, supple Additional Comments: good areation ant Cardiology: Present: no edema, normal S1, normal S2 Gastrointestinal: Present: no tenderness, no guarding Integumentary: Present: warm and dry Additional Comments: lethargic Musculoskeletal: Present: no deformities Psychiatric: Present: cooperative - Lab 06/04/17 06:28 06/04/17 06:28 Most recent lab results Calcium 8.5 mg/dL (8.6-10.8) L 06/04/17 06:28 Phosphorus 4.5 mg/dL (2.3-4.7) 06/02/17 Unknown Magnesium 1.6 mg/dL (1.6-2.6) 06/03/17 04:32 - VTE Documentation of Mechanical Device: Intermittent pneumatic compression device Consult Discharge Plan - Plan Referrals: NO,PCP [Primary Care Provider] -
--- NOTE | 2017-06-04 13:20 | Internal Med Progress Note ---
<Angela Hodges - Last Filed: 06/04/17 14:12> Date of Encounter: 06/04/17 Time of Encounter: 11:00 - Assessment and plan (1) Hepatic encephalopathy Current Visit: Yes Status: Acute Assessment and plan: - Concern of hepatic encephalopathy given patient is very hypersomnolent this morning and has significant asterixis. - Patient didn't get lactulose last night (due to > 3 BMs) and this morning ( "patient refused"). - Ammonia 89 on 06/02/17 - Continue lactulose aggressively and add rifaximin. (2) Acute kidney failure Current Visit: Yes Status: Acute Assessment and plan: - Most likely due to hypoperfusion in the setting of hypovolemia secondary to third spacing - Other possible etiologies include toxin exposure, ATN, AIN. Doubt hepatorenal syndrome given the HUI significantly improves with IV fluid. - Renal function is back to almost baseline (SCr 1.0). - Continue midodrine and IV fluids - Monitor hypotension. Currently 90-100s systolic. - Nephrology following, appreciate recommendations. Qualifiers: Acute renal failure type: unspecified Qualified Code(s): N17.9 - Acute kidney failure, unspecified (3) Ascites due to alcoholic cirrhosis Current Visit: Yes Status: Acute Assessment and plan: - MELD score of 26 - Paracentesis on 06/03/17 by IR removed 5.5 L. - Peritoneal analysis is consistent with cirrhosis with SAAG = 2. Less likely SBP given < 24 PMN. (4) Alcohol abuse Current Visit: Yes Status: Acute Assessment and plan: - Patient admits to drinking approximately 8 beers per day, family reports approximately 1 case/ day. - History of hepatic cirrhosis secondary to chronic alcohol abuse - Patient denies any history of delirium tremors, withdrawal symptoms - CIWA protocol in place with Ativan on board. Decrease Librium to 5 mg BID scheduled. - Continue folic acid, thiamine, vitamin B. - Social work consulted (5) Hyponatremia Current Visit: Yes Status: Resolved Assessment and plan: - Na 129 on admission. - Improves with Na 140 today. - Subjective Interval history: No significant event noted overnight. Patient was seen and examined this morning. Patient is somnolent but arousable to verbal stimuli. Patient denies fever, chills, nausea, vomiting. - Constitutional Vitals: Temp Pulse Resp BP Pulse Ox 97.4 F L 67 16 99/65 99 06/04/17 11:19 06/04/17 11:19 06/04/17 11:19 06/04/17 11:19 06/04/17 11:19 General appearance: Present: no acute distress Exam: Patient is hypersomnolent but arousable to verbal stimuli. - Head Head exam: Present: atraumatic, normocephalic - Eye Eye exam: Present: conjuntiva pink, sclera anicteric - Neck Neck exam general surgery: Present: supple, trachea midline - Respiratory Respiratory exam: Present: CTAB. Absent: accessory muscle use, rales, rhonchi, wheezes - Cardiovascular Cardiovascular exam: Present: RRR, +S1, +S2. Absent: diastolic murmur, gallop, rubs, systolic murmur - GI/Abdominal GI/Abdominal exam: Present: normal bowel sounds, soft, no peritoneal signs. Absent: distended, tenderness - Extremities Exam Extremities exam: Present: warm, radial pulses palpable and symetrical. Absent : calf tenderness, cyanotic, pedal edema - Neurological Exam Neurological exam: Absent: pronater drift, facial droop, speech deficit Additional comments: Significant asterixis noted. - Skin Skin exam: Present: dry, intact, warm Internal Medicine: Result - Labs CBC & Chem 7: 06/04/17 06:28 06/04/17 06:28 Labs: Short CBC 06/04/17 Range/Units 06:28 WBC 7.4 (4.3-11.1) K/mcL Hgb 12.3 (11.5-15.4) g/dL Hct 37.4 (35.3-44.9) % Plt Count 178 (140-400) K/mcL [facility] 06/04/17 06:28 Sodium 140 Potassium 3.6 Chloride 113 H Carbon Dioxide 21 BUN 16 D Creatinine 1.09 Glucose 101 H Calcium 8.5 L - ABG Interpretation ABG results: PT/INR, D-dimer PT 14.2 Seconds (9.4-12.1) H 06/02/17 03:10 - VTE Documentation of Mechanical Device: Intermittent pneumatic compression device Consult Discharge Plan - Plan Referrals: NO,PCP [Primary Care Provider] - <Gabriel Carrillo H - Last Filed: 06/04/17 14:52> Date of Encounter: 06/04/17 - Constitutional Vitals: Temp Pulse Resp BP Pulse Ox 97.4 F L 67 16 99/65 99 06/04/17 11:19 06/04/17 11:19 06/04/17 11:19 06/04/17 11:19 06/04/17 11:19 Internal Medicine: Result - Labs CBC & Chem 7: 06/04/17 06:28 06/04/17 06:28 Labs: Short CBC 06/04/17 Range/Units 06:28 WBC 7.4 (4.3-11.1) K/mcL Hgb 12.3 (11.5-15.4) g/dL Hct 37.4 (35.3-44.9) % Plt Count 178 (140-400) K/mcL BMP 06/04/17 06:28 Sodium 140 Potassium 3.6 Chloride 113 H Carbon Dioxide 21 BUN 16 D Creatinine 1.09 Glucose 101 H Calcium 8.5 L - ABG Interpretation ABG results: PT/INR, D-dimer PT 14.2 Seconds (9.4-12.1) H 06/02/17 03:10 - Attending Attestation continue lactulose I examined this patient and my medical decision-making was reviewed with the Resident Physician. I agree with the documented findings, disposition and treatment plan as described except to the extent set forth below.
[2017-06-04] MEDS ORDERED: Lactulose Oral Soln 20 GM/30 ML UDC PO ONE (14:49)
[2017-06-04] MEDS: *HR* OxyCODONE Immed Rel 5 MG TABLET PO PRN (16:27)
[2017-06-04] MEDS: *HR* Morphine 2 MG/ML SYRINGE IVP PRN (20:35)
[2017-06-05] MEDS: 0.9 % Sodium Chloride 1,000 ML IVC SCH (02:01)
[2017-06-05] MEDS: *HR* Morphine 2 MG/ML SYRINGE IVP PRN ×2 (03:35→20:00)
[2017-06-05 03:43] LABS: Hematocrit 35.1 % (35.3-44.9); Hemoglobin 11.9 g/dL (11.5-15.4); Mean Corpuscular HGB Conc 33.9 g/dL (31.6-35.5); Mean Corpuscular Hemoglobin 31.2 pg (28.0-33.3); Mean Corpuscular Volume 91.9 fL (83.0-100.0); Platelet Count 169 K/mcL (140-400); Red Blood Count 3.82 M/mcL (3.82-4.97); Red Cell Distribution Width 13.4 % (11.5-14.5)
[2017-06-05 03:51] LABS: BUN/Creatinine Ratio 12 (6-26); Blood Urea Nitrogen 11 mg/dL (7-20); Calcium 8.2 mg/dL (8.6-10.8); Carbon Dioxide 18 mEq/L (19-29); Chloride 117 mEq/L (98-109); Glucose 108 mg/dL (70-99); Osmolality,Calculated 290 (280-300); Potassium 3.4 mEq/L (3.5-4.5); Sodium 140 mEq/L (136-145); eGFR For African Americans > 60 (> 60); eGFR For Non-African Americans > 60 (> 60)
[2017-06-05] MEDS: Levothyroxine 25 MCG TABLET PO SCH (05:38)
[2017-06-05] MEDS: Lactulose Oral Soln 20 GM/30 ML UDC PO SCH ×2 (09:12→20:13)
[2017-06-05] MEDS: Thiamine (B-1) 100 MG TABLET PO SCH (09:12)
[2017-06-05] MEDS: Aspirin Enteric Coated 81 MG Tablet PO SCH (09:12)
[2017-06-05] MEDS: Vitamin B Complex/Vit C/Vit E 1 EACH TABLET PO SCH (09:12)
[2017-06-05] MEDS: Folic Acid 1 MG TABLET PO SCH (09:12)
--- NOTE | 2017-06-05 10:35 | Internal Med Progress Note ---
<Angela Hodges - Last Filed: 06/05/17 10:32> Date of Encounter: 06/05/17 Time of Encounter: 10:00 - Assessment and plan (1) Hepatic encephalopathy Current Visit: Yes Status: Acute Assessment and plan: - Concern of hepatic encephalopathy given patient was very hypersomnolent and had significant asterixis. - Ammonia 89 on 06/02/17 - Improves as patient is more awake and oriented today with mild asterixis. - Continue lactulose and rifaximin. (2) Acute kidney failure Current Visit: Yes Status: Acute Assessment and plan: - Most likely due to hypoperfusion in the setting of hypovolemia secondary to third spacing - Other possible etiologies include toxin exposure, ATN, AIN. Doubt hepatorenal syndrome given the HUI significantly improves with IV fluid. - Renal function is back to baseline (SCr 0.93 today). - Blood pressure also improves with BP 117/74 this morning. Will discontinue midodrine and IV fluids - Nephrology following, appreciate recommendations. Qualifiers: Acute renal failure type: unspecified Qualified Code(s): N17.9 - Acute kidney failure, unspecified (3) Ascites due to alcoholic cirrhosis Current Visit: Yes Status: Acute Assessment and plan: - MELD score of 26 - Paracentesis on 06/03/17 by IR removed 5.5 L. - Peritoneal analysis is consistent with cirrhosis with SAAG = 2. Unlikely SBP given < 24 PMN and culture no growth so far. (4) Alcohol abuse Current Visit: Yes Status: Acute Assessment and plan: - Patient admits to drinking approximately 8 beers per day, family reports approximately 1 case/ day. - History of hepatic cirrhosis secondary to chronic alcohol abuse - Patient denies any history of delirium tremors, withdrawal symptoms - CIWA protocol in place with Ativan on board. Decrease Librium to 5 mg BID scheduled. - Continue folic acid, thiamine, vitamin B. - Will consult PT/OT for possible deconditioning. Social work is also consulted regarding placement. (5) Hyponatremia Current Visit: Yes Status: Resolved Assessment and plan: - Na 129 on admission. - Improves with Na 140 today. - Time Spent With Patient 25 - 35 minutes - Subjective Interval history: No significant event noted overnight. Patient was seen and examined this morning. Patient is much more awake this morning and able to answer my questions much better. Patient has no complaint at this time. Patient denies fever, chills, nausea, vomiting, abdominal pain, shortness of breath, chest pain. - Constitutional Vitals: Temp Pulse Resp BP Pulse Ox 97.6 F 68 16 117/74 98 06/05/17 08:28 06/05/17 08:28 06/05/17 08:28 06/05/17 08:28 06/05/17 09:21 General appearance: Present: A&O X 3, no acute distress, answers questions appropriately - Head Head exam: Present: atraumatic, normocephalic - Eye Eye exam: Present: EOMI, PERRL, conjuntiva pink, sclera anicteric - Neck Neck exam general surgery: Present: supple, trachea midline. Absent: lymphadenopathy - Respiratory Respiratory exam: Present: CTAB. Absent: accessory muscle use, rales, rhonchi, wheezes - Cardiovascular Cardiovascular exam: Present: RRR, +S1, +S2. Absent: diastolic murmur, gallop, rubs, systolic murmur - GI/Abdominal GI/Abdominal exam: Present: distended (Mild), normal bowel sounds, soft, no peritoneal signs. Absent: tenderness - Extremities Exam Extremities exam: Present: warm, radial pulses palpable and symetrical. Absent : calf tenderness, cyanotic, pedal edema - Neurological Exam Neurological exam: Present: oriented X3, no focal deficits. Absent: pronater drift, facial droop, speech deficit Additional comments: Mild asterixis. - Skin Skin exam: Present: dry, intact, warm Internal Medicine: Result - Labs CBC & Chem 7: 06/05/17 03:25 06/05/17 03:25 Labs: Short CBC 06/05/17 Range/Units 03:25 WBC 7.9 (4.3-11.1) K/mcL Hgb 11.9 (11.5-15.4) g/dL Hct 35.1 L (35.3-44.9) % Plt Count 169 (140-400) K/mcL BMP 06/05/17 03:25 Sodium 140 Potassium 3.4 L Chloride 117 H Carbon Dioxide 18 L BUN 11 Creatinine 0.93 Glucose 108 H Calcium 8.2 L - ABG Interpretation ABG results: PT/INR, D-dimer PT 14.2 Seconds (9.4-12.1) H 06/02/17 03:10 - VTE Documentation of Mechanical Device: Intermittent pneumatic compression device Consult Discharge Plan - Plan Referrals: NO,PCP [Primary Care Provider] - <Gabriel Carrillo H - Last Filed: 06/05/17 13:02> Date of Encounter: 06/05/17 - Constitutional Vitals: Temp Pulse Resp BP Pulse Ox 97.5 F L 84 16 120/79 93 06/05/17 12:11 06/05/17 12:11 06/05/17 12:11 06/05/17 12:11 06/05/17 12:11 Internal Medicine: Result - Labs CBC & Chem 7: 06/05/17 03:25 06/05/17 03:25 Labs: Short CBC 06/05/17 Range/Units 03:25 WBC 7.9 (4.3-11.1) K/mcL Hgb 11.9 (11.5-15.4) g/dL Hct 35.1 L (35.3-44.9) % Plt Count 169 (140-400) K/mcL [facility] 06/05/17 03:25 Sodium 140 Potassium 3.4 L Chloride 117 H Carbon Dioxide 18 L BUN 11 Creatinine 0.93 Glucose 108 H Calcium 8.2 L - ABG Interpretation ABG results: PT/INR, D-dimer PT 14.2 Seconds (9.4-12.1) H 06/02/17 03:10 - Attending Attestation Continue lactulose Discontinue IV fluids PTOT evaluation for discharge planning I examined this patient and my medical decision-making was reviewed with the Resident Physician. I agree with the documented findings, disposition and treatment plan as described except to the extent set forth below.
--- NOTE | 2017-06-05 14:50 | Nephrology Progress Note ---
Date of Encounter: 06/05/17 Time of Encounter: 12:00 - Assessment and Plan (1) Acute kidney failure Current Visit: Yes Status: Acute Scr normalized at 0.93, GFR >60 which is great UOP still not documented! Continue to avoid nephrotoxins if possible ill sign off, please reconsult prn Qualifiers: Acute renal failure type: unspecified Qualified Code(s): N17.9 - Acute kidney failure, unspecified (2) Ascites due to alcoholic cirrhosis Current Visit: Yes Status: Acute s/p paracenteis with 5.5liters removed continue lactulose per primary team continue midodrine (3) Hyponatremia Current Visit: Yes Status: Resolved normalized with sodium now at 140, will monitor Subjective Principal diagnosis: hepatorenal syndrome Interval history: Pt seen and examined more awake with family at bedside. No new complaints Objective - Vital Signs Vital signs: Vital Signs Temp Pulse Resp BP Pulse Ox 06/05/17 12:11 97.5 F L 84 16 120/79 93 06/05/17 09:21 98 06/05/17 08:28 97.6 F 68 16 117/74 98 06/05/17 04:31 98 F 81 17 110/70 99 06/05/17 00:01 98.3 F 68 17 109/71 97 06/04/17 19:42 98.2 F 66 16 107/69 97 06/04/17 16:13 98.4 F 68 16 98/65 95 Intake and Output 06/04/17 06/05/17 06/05/17 23:59 07:59 15:59 Intake Total 1000 / 1000 1000 / 1000 240 / 240 Output Total 100 / 100 0 / 0 Balance 1000 / 1000 900 / 900 240 / 240 Intake: IV Fluids 1000 / 1000 1000 / 1000 0.9 % Sodium Chloride 1, 1000 / 1000 1000 / 1000 000 ML @ 125 mls/hr IVC . Q8H DEVEN Rx#:[id number] Oral 240 / 240 Output: Urine 100 / 100 0 / 0 Other: Meal Lunch Percent of Meal Consumed 0% Stool Size Smear Stool Consistency loose Stool Color Brown # Voids 1 1 Weight 64.1 kg Blood Glucose* 119 104 Patient Weight 06/05/17 23:59 Weight 64.1 kg - Lab 06/05/17 03:25 06/05/17 03:25 Most recent lab results Calcium 8.2 mg/dL (8.6-10.8) L 06/05/17 03:25 Phosphorus 4.5 mg/dL (2.3-4.7) 06/02/17 Unknown Magnesium 1.6 mg/dL (1.6-2.6) 06/03/17 04:32 - VTE Documentation of Mechanical Device: Intermittent pneumatic compression device Consult Discharge Plan - Plan Referrals: NO,PCP [Primary Care Provider] -
[2017-06-05] MEDS: *HR* OxyCODONE Immed Rel 5 MG TABLET PO PRN (16:15)
[2017-06-06] MEDS: *HR* Morphine 2 MG/ML SYRINGE IVP PRN (04:29)
[2017-06-06 05:38] LABS: BUN/Creatinine Ratio 11 (6-26); Blood Urea Nitrogen 12 mg/dL (7-20); Calcium 8.8 mg/dL (8.6-10.8); Carbon Dioxide 14 mEq/L (19-29); Chloride 116 mEq/L (98-109); Glucose 97 mg/dL (70-99); Magnesium 1.5 mg/dL (1.6-2.6); Osmolality,Calculated 284 (280-300); Sodium 137 mEq/L (136-145); eGFR For African Americans > 60 (> 60); eGFR For Non-African Americans 52 (> 60)
[2017-06-06 05:42] LABS: Potassium 4.4 mEq/L (3.5-4.5)
[2017-06-06] MEDS: Levothyroxine 25 MCG TABLET PO SCH (06:53)
[2017-06-06] MEDS: Lactulose Oral Soln 20 GM/30 ML UDC PO SCH (09:02)
[2017-06-06] MEDS: Aspirin Enteric Coated 81 MG Tablet PO SCH (09:03)
[2017-06-06] MEDS: Thiamine (B-1) 100 MG TABLET PO SCH (09:03)
[2017-06-06] MEDS: Vitamin B Complex/Vit C/Vit E 1 EACH TABLET PO SCH (09:03)
[2017-06-06] MEDS: Folic Acid 1 MG TABLET PO SCH (09:03)
[2017-06-06 10:50] VITALS: BP 107/73
[2017-06-06] MEDS ORDERED: Spironolactone 25 MG TABLET PO SCH (11:30)
--- NOTE | 2017-06-06 11:37 | Discharge Summary ---
<Jose Ibrahim - Last Filed: 06/06/17 15:04> Date of Encounter: 06/06/17 Time of Encounter: 11:30 - Discharge Diagnosis (1) Hepatorenal syndrome Priority: Primary Status: Acute Comments: type 1 (2) Acute kidney failure Priority: Secondary Status: Resolved Comments: Secondary to hepatorenal syndrome Qualifiers: Acute renal failure type: unspecified Qualified Code(s): N17.9 - Acute kidney failure, unspecified (3) Ascites due to alcoholic cirrhosis Priority: Secondary Status: Chronic Comments: Status post paracentesis (4) Nausea and vomiting Priority: Secondary Status: Resolved Qualifiers: Vomiting type: unspecified Vomiting Intractability: non-intractable Qualified Code(s): R11.2 - Nausea with vomiting, unspecified (5) Alcohol abuse Priority: Secondary Status: Chronic (6) Abdominal pain Priority: Secondary Status: Resolved Qualifiers: Abdominal location: generalized Qualified Code(s): R10.84 - Generalized abdominal pain - Discharge Medications Prescriptions: OxyCODONE Immed Rel [Roxicodone 5 MG] 5 mg PO Q6HR PRN #28 tablet PRN Reason: Pain Furosemide [Lasix] 20 mg PO BIDDIURETIC #30 tab Lactulose 20 gm PO BID #30 unit Rifaximin [Xifaxan] 550 mg PO BID #30 tab Spironolactone [Aldactone] 12.5 mg PO DAILY #30 tab Home Medications: Amlodipine Besylate 10 mg PO DAILY 05/25/17 [History] Aspirin [Lo-Dose Aspirin EC] 81 mg PO DAILY 05/25/17 [History] Atorvastatin [Lipitor] 40 mg PO HS 05/25/17 [History] LORazepam [Ativan] 0.5 mg PO BID PRN 05/25/17 [History] Levothyroxine Sodium [Levoxyl] 25 mcg PO DAILY 05/25/17 [History] Lisinopril [Zestril] 10 mg PO DAILY 05/25/17 [History] Citalopram Hydrobromide [Celexa] 40 mg PO DAILY 06/02/17 [History] Furosemide [Lasix] 20 mg PO BIDDIURETIC #30 tab 06/06/17 [Rx] Lactulose 20 gm PO BID #30 unit 06/06/17 [Rx] OxyCODONE Immed Rel [Roxicodone 5 MG] 5 mg PO Q6HR PRN #28 tablet 06/06/17 [Rx] Rifaximin [Xifaxan] 550 mg PO BID #30 tab 06/06/17 [Rx] Spironolactone [Aldactone] 12.5 mg PO DAILY #30 tab 06/06/17 [Rx] Allergies/Adverse Reactions: Allergies acetaminophen [From Tylenol-Codeine #3] Adverse Reaction (Verified 06/01/17 22: 42) Vomiting codeine [From Tylenol-Codeine #3] Adverse Reaction (Verified 06/01/17 22:42) Vomiting hydrocodone [From [place]] Adverse Reaction (Verified 06/01/17 22:42) Vomiting Date of admission: 06/03/17 16:05 Primary care physician: PCP NO Consults: 06/04/17 14:48 Consult to Occupational Therapy [CONS] Routine Comment: Evaluate, develop and implement POC Reason for Consult: weakness Consult to Physical Therapy [CONS] Routine Comment: Evaluate, develop and implement POC Reason for Consult: weakness Discharging clinician: Jose Ibrahim Anticipated date of discharge: 06/06/17 - Patient Status Disposition: Transfer SNF Condition: Fair Functional capacity at discharge: independent ambulation Overall status at discharge: patient is progressing back to baseline - Discharge Instructions Follow Up With: Harish Valencia MD [Non-Partnered Physician] - 06/14/17 2:00 pm (Please follow up as schedule..) - Diet and Activity Activity: as per physical therapy, increase activity as tolerated Diet: other (Refrain from alcohol) Hospital course: Ms. Bhagat is a 61 year old female past medical history of alcoholic cirrhosis , alcohol abuse, CAD, hypertension, asthma, CVA, anxiety, depression with recent umbilical hernia repair approximately one week ago where 6.9 L of ascites fluid was removed presents to [facility] with a chief complaint of abdominal discomfort, nausea, vomiting 1 week. She states that her symptoms began following her surgery, however she was still able to consume alcohol, however was not able to tolerate food. She states that she drinks approximately 8 beers per day, however her family who are present at bedside and state it is closer to 1 case of beer. She states she has had a stretching, sharp shooting pain in her abdomen around her recent surgical site. She has also noticed a fullness to her abdomen. Denies any symptoms of fevers , chills, sweating, blurry vision, chest pain, palpitations, shortness of breath. In the emergency room, patient's vital signs were notable for hypotension at 89/57. Physical exam revealed distended abdomen with positive fluid wave, mild tenderness to palpation in the lower left quadrant without evidence of surgical site infection. Lab results were significant for hyponatremia, 127, hypochloremia 97, CO2 18, elevated BUN/creatinine of 42/2.1. Albumin was low at 2.7. She was noted medicine service for symptomatic ascites, acute kidney injury with suspected hepatorenal syndrome. She was started on midodrine, albumin, IV fluids. During course of hospital stay, she received multiple albumin infusions, and a diagnostic and therapeutic paracentesis with 5.5 L of fluid taken off. Echocardiogram revealed ejection fraction of 66 5% with mild diastolic dysfunction. She tolerated the midodrine with good results of her blood pressure. Nephrology was consulted for evaluation of hepatorenal syndrome. Patient's BUN/creatinine slowly improved back to baseline with paracentesis, abdomen, fluids, midodrine. During hospital stay, patient was also monitored for alcohol withdrawal. She was placed on CIWA for alcohol, with Ativan when necessary agitation, Librium which was titrated down during hospital stay. She was given lactulose for an elevated ammonia level of 89 in the setting of alcoholic cirrhosis. Patient's mentation and symptoms continue to improve during hospital stay. Patient's lab values returned to within her baseline limits. She was evaluated by physical therapy and occupational therapy and was recommended for extended care facility for decompensation. She will be discharged to [facility] in stable medical condition and instructed to follow-up with her primary care physician upon completion. Strong recommendations were also made for alcohol cessation to both the patient and the family. - Time Spent with Patient Total time spent providing and/or coordinating discharge services: 40 minutes - Constitutional Vitals: Temp Pulse Resp BP Pulse Ox 97.7 F 83 14 107/73 99 06/06/17 10:47 06/06/17 10:47 06/06/17 10:47 06/06/17 10:47 06/06/17 10:47 General appearance: Present: A&O X 3, no acute distress, answers questions appropriately Exam: Gen.: Vitals noted. No acute distress. AAOx3 HEENT: PERRL/EOMI, oropharynx clear, Normocephalic, atraumatic Neck: Supple. No adenopathy. Cardiac: RRR, no murmur, +S1/S2 Pulmonary: CTA bilaterally, no wheezes, rales or rhonchi, equal chest expansion Abdomen: Mildly tender diffusely, mild distention. soft, BS noted, no guarding Back: Nontender throughout. MSK: ROM intact, no joint swelling noted Extremities: no BLE edema, nontender calf, no cyanosis or clubbing Neuro: A&Ox3, moves all extremities, no focal deficits Psych: Appropriate mood and behavior - VTE Documentation of Mechanical Device: Intermittent pneumatic compression device <Gabriel Carrillo - Last Filed: 06/06/17 15:28> Date of Encounter: 06/06/17 Date of admission: 06/03/17 16:05 Primary care physician: PCP NO Consults: 06/04/17 14:48 Consult to Occupational Therapy [CONS] Routine Comment: Evaluate, develop and implement POC Reason for Consult: weakness Consult to Physical Therapy [CONS] Routine Comment: Evaluate, develop and implement POC Reason for Consult: weakness Hospital course: Ms. Bhagat is a 61 year old female - Time Spent with Patient Total time spent providing and/or coordinating discharge services: - Constitutional Vitals: Temp Pulse Resp BP Pulse Ox 97.7 F 83 14 107/73 99 06/06/17 10:47 06/06/17 10:47 06/06/17 10:47 06/06/17 10:47 06/06/17 10:47 - Attending Attestation Acute hepatic encephalopathy Continue lactulose. Be compliant with the spironolactone, Lasix. Follow-up with nephrology within the next 2 weeks I examined this patient and my medical decision-making was reviewed with the Resident Physician. I agree with the documented findings, disposition and treatment plan as described except to the extent set forth below.
--- NOTE | 2017-06-06 13:36 | Physician Discharge Referral ---
<Jose Ibrahim - Last Filed: 06/06/17 13:35> [facility] Referral Info Provider in Charge after Transfer: PCP Institutional Level of Care: Skilled - Diagnosis (1) Hepatorenal syndrome Priority: Primary Status: Acute (2) Acute kidney failure Priority: Secondary Status: Resolved (3) Ascites due to alcoholic cirrhosis Priority: Secondary Status: Chronic (4) Nausea and vomiting Priority: Secondary Status: Resolved (5) Alcohol abuse Priority: Secondary Status: Chronic (6) Abdominal pain Priority: Secondary Status: Resolved Prognosis: Fair Aware of Diagnosis: Patient, Family Aware of Prognosis: Patient, Family - Transfer Medications Prescriptions: OxyCODONE Immed Rel [Roxicodone 5 MG] 5 mg PO Q6HR PRN #28 tablet PRN Reason: Pain Furosemide [Lasix] 20 mg PO BIDDIURETIC #30 tab Lactulose 20 gm PO BID #30 unit Rifaximin [Xifaxan] 550 mg PO BID #30 tab Spironolactone [Aldactone] 12.5 mg PO DAILY #30 tab Home Medications: Amlodipine Besylate 10 mg PO DAILY 05/25/17 [History] Aspirin [Lo-Dose Aspirin EC] 81 mg PO DAILY 05/25/17 [History] Atorvastatin [Lipitor] 40 mg PO HS 05/25/17 [History] LORazepam [Ativan] 0.5 mg PO BID PRN 05/25/17 [History] Levothyroxine Sodium [Levoxyl] 25 mcg PO DAILY 05/25/17 [History] Lisinopril [Zestril] 10 mg PO DAILY 05/25/17 [History] Citalopram Hydrobromide [Celexa] 40 mg PO DAILY 06/02/17 [History] Furosemide [Lasix] 20 mg PO BIDDIURETIC #30 tab 06/06/17 [Rx] Lactulose 20 gm PO BID #30 unit 06/06/17 [Rx] OxyCODONE Immed Rel [Roxicodone 5 MG] 5 mg PO Q6HR PRN #28 tablet 06/06/17 [Rx] Rifaximin [Xifaxan] 550 mg PO BID #30 tab 06/06/17 [Rx] Spironolactone [Aldactone] 12.5 mg PO DAILY #30 tab 06/06/17 [Rx] Allergies/Adverse Reactions: Allergies acetaminophen [From Tylenol-Codeine #3] Adverse Reaction (Verified 06/01/17 22: 42) Vomiting codeine [From Tylenol-Codeine #3] Adverse Reaction (Verified 06/01/17 22:42) Vomiting hydrocodone [From Goltry] Adverse Reaction (Verified 06/01/17 22:42) Vomiting - Respiratory Orders Smoking Cessation: Smoking cessation has been advised. For more information, call the [employer] Line at 1-355-BOFS-NOW. - Rehabiliation Orders Rehab Potential: Fair Rehab Orders: Evaluation for Physical Therapy, Evaluation for Occupational Therapy - Diet Orders Regular CERTIFICATION: I certify that the transfer of the above named patient to an Extended Care Facility is necessary for the continuing treatment of the diagnosis listed. The above information is true and accurate reflection of patient's current condition. Confidential - Redisclosure prohibited without a patient's written consent. <Gabriel Carrillo - Last Filed: 06/06/17 15:29> - Respiratory Orders Smoking Cessation: Smoking cessation has been advised. For more information, call the [employer] Line at 8-416-ZENL-NOW. CERTIFICATION: I certify that the transfer of the above named patient to an Extended Care Facility is necessary for the continuing treatment of the diagnosis listed. The above information is true and accurate reflection of patient's current condition. Confidential - Redisclosure prohibited without a patient's written consent. I examined this patient and my medical decision-making was reviewed with the Resident Physician. I agree with the documented findings, disposition and treatment plan as described except to the extent set forth below.
[2017-06-06] MEDS ORDERED: Furosemide 20 MG TABLET PO SCH (17:00)
== END 2017-06-06 15:08 | DRG 432 ==
LOC: EMEROO 22:09 → 2ANU 22:09
PROVIDERS: ADMIT Internal Medicine; ATTEND Internal Medicine